=== PATIENT | female | born 2000 | race Caucasian/White ===

== ENCOUNTER 2021-03-13 03:20 | Outpatient (CLI) | payer MEDICAID | END 2021-03-13 03:21 | disposition critical access hospital (66) | LOC: EMS 03:20 | DX: R10.9 Unspecified abdominal pain (principal); R19.7 Diarrhea, unspecified; K92.1 Melena | CPT/HCPCS: A0425; A0429 ==

== ENCOUNTER 2021-03-13 03:38 | Emergency (ER) | payer MEDICAID ==
[2021-03-13] MEDS ORDERED: LORazepam 1 MG TABLET PO STA (03:48)
[2021-03-13] MEDS ORDERED: SODIUM CHLORIDE 0.9% 1,000 ML IV STA (03:48)
[2021-03-13] MEDS ORDERED: MORPHINE 10 MG/ML VIAL IVP STA (03:48)
[2021-03-13] MEDS ORDERED: ONDANSETRON 4 MG/2 ML VIAL IVP STA (03:48)
--- NOTE | 2021-03-13 03:50 | ED Physician Documentation ---
History of Present Illness - Stated complaint Stated Complaint: ABD PX/ N/V - Chief complaint Chief Complaint: Abd Pain - History obtained from History obtained from: Patient - Additonal information Additional information: 20-year-old woman with history of eating disorder, depression and anxiety, presents with nausea, vomiting and diarrhea since last night. Patient denies fevers, back pain, does endorse diffuse abdominal pain. Denies urinary symptoms. She was sent by [facility] where she is currently residing in treatment for mental health. endorses blood in vomitus and stool. Review of Systems Constitutional: reports: Chills. denies: Fever GI: reports: Abdominal Pain, Nausea, Vomiting, Diarrhea PD PAST MEDICAL HISTORY - Past Medical History Past Medical History: Yes Respiratory: Asthma Psych: Depression, Anxiety, Bipolar disorder, Eating disorder - Past Surgical History Past Surgical History: No - Present Medications Home Medications: Ambulatory Orders Medication Instructions Recorded Confirmed FLUoxetine [PROzac] 20 mg PO DAILY 03/13/21 03/13/21 LORazepam [Ativan] 1 mg PO DAILY 03/13/21 03/13/21 Mirtazapine [Remeron] 15 mg PO DAILY 03/13/21 03/13/21 Ondansetron Odt [Zofran Odt] 4 mg TL Q6H PRN #10 tablet 03/13/21 hydrOXYzine HCL [Hydroxyzine HCl] 25 mg PO DAILY 03/13/21 03/13/21 traZODone [Desyrel] 50 mg PO DAILY 03/13/21 03/13/21 - Allergies Allergies/Adverse Reactions: Allergies Allergy/AdvReac Type Severity Reaction Status Date / Time No Known Drug Allergies Allergy Verified 03/13/21 03:42 - Social History Does the pt smoke?: Yes Smoking Status: Current every day smoker Does the pt drink ETOH?: No Does the pt have substance abuse?: No - Immunizations Immunizations are current?: Yes PD ED PE NORMAL - Vitals Vital signs reviewed: Yes - General General: Alert and oriented X 3, Other (anxious appearing. thin appearing) - HEENT HEENT: Atraumatic, PERRL, EOMI - Neck Neck: Supple, no meningeal sign - Cardiac Cardiac: RRR - Respiratory Respiratory: No respiratory distress, Clear bilaterally - Abdomen Abdomen: Other (diffuse discomfrot to palpation) - Back Back: No CVA TTP - Derm Derm: Normal color, Warm and dry - Extremities Extremities: No deformity - Neuro Neuro: Alert and oriented X 3 - Psych Psych: Other (anxious mood and affect) Results - Vitals Vitals: Vital Signs - 24 hr 03/13/21 03/13/21 03:42 03:45 Temperature 37 C 37 C Heart Rate 83 83 Respiratory 17 17 Rate Blood Pressure 119/98 H 119/89 H O2 Saturation 100 100 Oxygen O2 Source Room air - Labs Labs: Microbiology 03/13/21 03:50 Occult Blood - Final Stool Laboratory Tests 03/13/21 03/13/21 03/13/21 03:50 03:50 04:00 WBC 13.7 H RBC 5.40 Hgb 16.9 H Hct 48.4 H MCV 89.6 MCH 31.3 H MCHC 34.9 RDW 11.8 L Plt Count 334 MPV 11.0 H Neut # (Auto) 9.7 H Lymph # (Auto) 2.9 Douglas # (Auto) 1.0 Eos # (Auto) 0.1 Baso # (Auto) 0.1 Absolute Nucleated RBC 0.00 Nucleated RBC % 0.0 Sodium Potassium Chloride Carbon Dioxide Anion Gap BUN Creatinine Estimated GFR (MDRD) Glucose Calcium Magnesium Total Bilirubin AST ALT Alkaline Phosphatase Total Protein Albumin Globulin Albumin/Globulin Ratio Lipase Urine Color YELLOW Urine Clarity HAZY Urine pH 7.5 Ur Specific [place] 1.020 Urine Protein NEGATIVE Urine Glucose (UA) NEGATIVE Urine Ketones NEGATIVE Urine Occult Blood NEGATIVE Urine Nitrite NEGATIVE Urine Bilirubin NEGATIVE Urine Urobilinogen 0.2 (NORMAL) Ur Leukocyte Esterase NEGATIVE Urine RBC 0-5 Urine WBC 0-3 Ur Squamous Epith Cells FEW Squamous Amorphous Sediment Moderate Urine Bacteria Few Ur Microscopic Review INDICATED Urine Culture Comments NOT INDICATED Urine HCG, Qual NEGATIVE 03/13/21 04:00 WBC RBC Hgb Hct MCV MCH MCHC RDW Plt Count MPV Neut # (Auto) Lymph # (Auto) [place] # (Auto) Eos # (Auto) Baso # (Auto) Absolute Nucleated RBC Nucleated RBC % Sodium 140 Potassium 3.6 Chloride 101 Carbon Dioxide 27 Anion Gap 12.0 BUN 10 Creatinine 0.9 Estimated GFR (MDRD) 80 L Glucose 99 Calcium 9.8 Magnesium 2.6 Total Bilirubin 1.1 H AST 22 ALT 23 Alkaline Phosphatase 48 Total Protein 8.1 Albumin 5.0 Globulin 3.1 Albumin/Globulin Ratio 1.6 Lipase 40 Urine Color Urine Clarity Urine pH Ur Specific [place] Urine Protein Urine Glucose (UA) Urine Ketones Urine Occult Blood Urine Nitrite Urine Bilirubin Urine Urobilinogen Ur Leukocyte Esterase Urine RBC Urine WBC Ur Squamous Epith Cells Amorphous Sediment Urine Bacteria Ur Microscopic Review Urine Culture Comments Urine HCG, Qual PD MEDICAL DECISION MAKING - ED course ED course: 20-year-old woman presents from [facility] for evaluation of nausea, vomiting, diarrhea and abdominal pain. Will obtain screening lab work, treat symptomatically and reevaluate. Patient feeling much better, stating she is hungry. tolerating sips of water. labs noncontributory. likely stomach virus. education Given on symptom care and return precautions given. She can follow-up with her primary doctor. Departure - Departure Disposition: Home, Self Care Clinical Impression: Nausea and vomiting, Abdominal pain, Diarrhea Condition: Good Instructions: ED Diarrhea Viral Prescriptions: Ondansetron Odt [Zofran Odt] 4 mg TL Q6H PRN #10 tablet PRN Reason: Nausea / Vomiting Comments: You were seen in the emergency department for evaluation of nausea, vomiting, and diarrhea. Your lab work was normal. You are not . Your urine was normal. Glad that you are feeling better. Please fill your prescription and return to the emergency department if you have any new or worsening symptoms or other concerns. Follow-up with your primary doctor.
[2021-03-13 04:18] LABS: BASOPHILS # (AUTO) 0.1 10^3/uL (0.0-0.1); BASOPHILS % (AUTO) 0.4 %; EOSINOPHILS # (AUTO) 0.1 10^3/uL (0.0-0.7); EOSINOPHILS % (AUTO) 0.8 %; HCT - HEMATOCRIT 48.4 % (37.0-47.0); HGB - HEMOGLOBIN 16.9 g/dL (12.0-16.0); LYMPHOCYTES # (AUTO) 2.9 10^3/uL (1.5-3.5); MEAN CORPUSCULAR HEMOGLOBIN 31.3 pg (27.0-31.0); MEAN CORPUSCULAR HGB CONC 34.9 g/dL (32.0-36.0); MEAN CORPUSCULAR VOLUME 89.6 fL (81.0-99.0); MONOCYTES % (AUTO) 7.2 %; NEUTROPHILS # (AUTO) 9.7 10^3/uL (1.5-6.6); NEUTROPHILS % (AUTO) 70.3 %; PLT - PLATELET COUNT 334 10^3/uL (130-450); RED CELL DISTRIBUTION WIDTH 11.8 % (12.0-15.0); WHITE BLOOD COUNT 13.7 x10^3/uL (4.8-10.8)
[2021-03-13 04:26] LABS: BILIRUBIN,URINE NEGATIVE (NEGATIVE); CLARITY,URINE HAZY (CLEAR); GLUCOSE, URINE (UA) NEGATIVE (NEGATIVE); KETONES,URINE (UA) NEGATIVE (NEGATIVE); LEUKOCYTE ESTERASE, URINE NEGATIVE (NEGATIVE); NITRITE,URINE NEGATIVE (NEGATIVE); OCCULT BLOOD,URINE NEGATIVE (NEGATIVE); PH,URINE 7.5 PH (5.0-7.5); PROTEIN,URINE NEGATIVE (NEGATIVE); UROBILINOGEN,URINE 0.2 (NORMAL) E.U./dL (NORMAL)
[2021-03-13 04:27] LABS: HCG UR QUAL NEGATIVE
[2021-03-13 04:28] LABS: AMORPHOUS SEDIMENT,UR Moderate /LPF; BACTERIA,URINE Few /HPF (None Seen); RBC,URINE 0-5 /HPF (0-5); SQUAMOUS EPITHELIAL CELL,UR FEW Squamous (<= Few); WBC,URINE 0-3 /HPF (0-5)
[2021-03-13 04:30] LABS: ALBUMIN/GLOBULIN RATIO 1.6 (1.0-2.2); BILIRUBIN,TOTAL 1.1 mg/dL (0.2-1.0); CALCIUM 9.8 mg/dL (8.5-10.3); CREATININE 0.9 mg/dL (0.4-1.0); MAGNESIUM 2.6 mg/dL (1.7-2.8); POTASSIUM 3.6 mmol/L (3.5-5.0); TOTAL PROTEIN 8.1 g/dL (6.7-8.2)
[2021-03-13] MEDS ORDERED: oxyCODONE 5 MG TABLET PO STA (04:41)
[2021-03-13] MEDS ORDERED: ONDANSETRON ODT 4 MG TABLET TL STA (04:41)
[2021-03-13 05:12] VITALS: BP 130/88
== END 2021-03-13 05:52 | disposition home or self-care (01) ==
LOC: ED 03:38
DX: R11.2 Nausea with vomiting, unspecified (principal); R19.7 Diarrhea, unspecified; F17.200 Nicotine dependence, unspecified, uncomplicated
CPT/HCPCS: 36415; 80053; 81001; 81025; 81599; 82272; 83690; 83735; 85025; 96374; 96375; 99283; 99284; A9270; J8499; Q0162; 81003; 82274; 87045; 87046; 87086